=== PATIENT | male | born 1990 | race American Indian/Alaskan Native ===

== ENCOUNTER 2019-11-09 19:16 | Emergency (ER) | payer MEDICAID ==
[2019-11-09] MEDS ORDERED: Acetaminophen/oxyCODONE 325-5 MG Tab PO ONE ×2 (19:17→22:00)
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
[2019-11-09] MEDS ORDERED: Acetaminophen/HYDROcodone 108-2.5 MG/5 ML Cup PO ONE (21:37)
[2019-11-09] MEDS ORDERED: Ondansetron 4 MG Tab.DIS PO ONE (21:38)
[2019-11-09] MEDS ORDERED: Ketorolac 30 MG/ML SDV IM ONE (22:00)
[2019-11-09] MEDS ORDERED: Ketorolac 30 MG/ML SDV IVPUSH ONE (22:00)
[2019-11-09] MEDS ORDERED: Doxycycline 100 MG Cap PO ONE (22:08)
[2019-11-09] MEDS ORDERED: Acetaminophen/oxyCODONE 325-5 MG Tab ONE (22:14)
[2019-11-09 22:28] LABS: ANION GAP 17.7; CHLORIDE,CL 103 mmol/L (101-111); SODIUM,NA 142 mmol/L (135-145)
== END 2019-11-09 22:44 | disposition home or self-care (01) ==
LOC: DL.ED 19:16
DX: S02.609A Fracture of mandible, unspecified, initial encounter for closed fracture (principal); Y04.0XXA Assault by unarmed brawl or fight, initial encounter; F17.210 Nicotine dependence, cigarettes, uncomplicated; Z79.899 Other long term (current) drug therapy; Z88.0 Allergy status to penicillin
CPT/HCPCS: 36415; 70486; 80053; 80305; 80320; 85025; 96372; 99284; A9270; J1885; G0480

== ENCOUNTER 2022-10-29 18:30 | Inpatient (IN) | payer SELFPAY ==
[2022-10-29 19:34] LABS: CORONAVIRUS COVID-19 NAA NEGATIVE (NEGATIVE)
[2022-10-29] MEDS ORDERED: Sodium Chloride 0.9% 10 ML Syringe FLUSH PRN ×2 (20:23→22:55)
[2022-10-29] MEDS ORDERED: Ketorolac 30 MG/ML SDV IVPUSH ONE (20:36)
[2022-10-29] MEDS ORDERED: HYDROmorphone 0.5 MG/0.5 ML Syringe IVPUSH ONE (20:41)
[2022-10-29 21:04] LABS: ANION GAP 12.3 mEq/L (7-13); CHLORIDE,CL 93 mmol/L (98-107); SODIUM,NA 132 mmol/L (136-145)
[2022-10-29 21:05] LABS: ESTIMATED GFR 96 mL/min (>=60)
[2022-10-29] MEDS ORDERED: Iopamidol 755 Mg/ML 100 ML Bottle IVPUSH ONE (21:15)
[2022-10-29] MEDS ORDERED: Heparin Sodium 5,000 Units/ML Vial IVPUSH ONE (21:54)
[2022-10-29] MEDS ORDERED: Heparin Sodium/0.45% NaCl 25,000 UNITS/500 ML BAG IV SCH (22:00)
[2022-10-29] MEDS ORDERED: Meropenem 1 GM in Sodium Chloride 0.9% 100 ML IV ONE (22:20)
[2022-10-29] MEDS ORDERED: Acetaminophen 325 MG Tab PO PRN (22:53)
[2022-10-29] MEDS ORDERED: Albuterol/Ipratropium 3.0-0.5 MG/3 ML Neb Soln NEB PRN (22:55)
[2022-10-29] MEDS ORDERED: HYDROmorphone 0.5 MG/0.5 ML Syringe IVPUSH PRN (22:55)
[2022-10-29] MEDS ORDERED: Polyethylene Glycol 3350 Powder 17 GM Packet PO PRN (22:55)
[2022-10-29] MEDS ORDERED: Magnesium Hydroxide 400 MG/5 ML Susp 30 ML Cup PO PRN (22:55)
[2022-10-29] MEDS ORDERED: Ondansetron 4 MG/2 ML SDV IVPUSH PRN (22:55)
[2022-10-29] MEDS ORDERED: hydrOXYzine HCl 25 MG Tab PO PRN (22:59)
[2022-10-29] MEDS ORDERED: hydrALAZINE 20 MG/ML SDV IVPUSH PRN (23:35)
[2022-10-29] MEDS ORDERED: Metoprolol Tartrate 5 MG/5 ML SDV IVPUSH PRN (23:35)
[2022-10-30] MEDS: Acetaminophen/HYDROcodone 325-5 MG Tab PO PRN ×4 (04:50→20:18)
[2022-10-30] MEDS ORDERED: Heparin Sodium 5,000 Units/ML Vial IVPUSH ONE (05:15)
[2022-10-30] MEDS: Pantoprazole 40 MG Tab.CR PO SCH (05:27)
[2022-10-30] MEDS: Sodium Chloride 0.9% 10 ML Syringe FLUSH SCH ×2 (08:27→20:22)
[2022-10-30] MEDS ORDERED: oxyCODONE ER 10 MG TAB.ER PO SCH (09:00)
[2022-10-30] MEDS ORDERED: Nicotine 21 MG/24 Hr Patch TRDERM SCH (09:00)
[2022-10-30 10:45] LABS: AMPHETAMINES,URINE POSITIVE (NEGATIVE); BARBITURATES,URINE NEGATIVE (NEGATIVE); BENZODIAZEPINE,URINE NEGATIVE (NEGATIVE); MDMA (ECSTASY), URINE NEGATIVE (NEGATIVE); METHADONE,URINE NEGATIVE (NEGATIVE); METHAMPHETAMINES,URINE POSITIVE (NEGATIVE); OPIATES,URINE POSITIVE (NEGATIVE); PHENCYCLIDINE,URINE NEGATIVE (NEGATIVE); TCA,URINE NEGATIVE (NEGATIVE)
[2022-10-30 10:46] LABS: OXYCODONE,URINE NEGATIVE (NEGATIVE)
[2022-10-30] MEDS: Apixaban 5 MG Tab PO SCH ×2 (11:27→20:18)
[2022-10-31] MEDS: Acetaminophen/HYDROcodone 325-5 MG Tab PO PRN ×4 (00:54→20:07)
[2022-10-31] MEDS: Pantoprazole 40 MG Tab.CR PO SCH (05:15)
[2022-10-31 06:54] LABS: ANION GAP 11.9 mEq/L (7-13)
[2022-10-31] MEDS: Apixaban 5 MG Tab PO SCH ×2 (10:35→20:07)
[2022-10-31] MEDS: Sodium Chloride 0.9% 10 ML Syringe FLUSH SCH ×2 (10:35→20:07)
[2022-11-01] MEDS: Acetaminophen/HYDROcodone 325-5 MG Tab PO PRN (01:20)
[2022-11-01] MEDS: Pantoprazole 40 MG Tab.CR PO SCH (06:11)
[2022-11-01 06:37] LABS: ANION GAP 10.9 mEq/L (7-13)
[2022-11-01] MEDS ORDERED: traMADol 50 MG Tab PO PRN (08:10)
[2022-11-01] MEDS ORDERED: Polyethylene Glycol 3350 Powder 17 GM Packet PO SCH (09:00)
[2022-11-01] MEDS: Apixaban 5 MG Tab PO SCH (09:27)
[2022-11-01] MEDS: Sodium Chloride 0.9% 10 ML Syringe FLUSH SCH (09:29)
[2022-11-01] MEDS ORDERED: VANCOmycin 1.5 GM/300 ML 1.5 GM in Premix Bag 1 BAG IV SCH ×4 (11:00)
[2022-11-06] MEDS ORDERED: Apixaban 5 MG Tab PO SCH (09:00)
== END 2022-11-01 11:00 | DRG 176 ==
LOC: DL.ED 18:30 → UNDOADMIN 22:23 → DL.MS 22:23
PROVIDERS: ADMIT Internal Medicine; ATTEND Internal Medicine
DX: I26.99 Other pulmonary embolism without acute cor pulmonale (principal); J90 Pleural effusion, not elsewhere classified; R65.10 Systemic inflammatory response syndrome (SIRS) of non-infectious origin without acute organ dysfunction; E87.1 Hypo-osmolality and hyponatremia; R82.71 Bacteriuria; F19.90 Other psychoactive substance use, unspecified, uncomplicated; M54.50 Low back pain, unspecified; R09.89 Other specified symptoms and signs involving the circulatory and respiratory systems; F41.9 Anxiety disorder, unspecified; F17.210 Nicotine dependence, cigarettes, uncomplicated; B18.2 Chronic viral hepatitis C; Z20.822 Contact with and (suspected) exposure to COVID-19; E87.8 Other disorders of electrolyte and fluid balance, not elsewhere classified; R73.9 Hyperglycemia, unspecified; R00.0 Tachycardia, unspecified; E80.6 Other disorders of bilirubin metabolism; Z88.0 Allergy status to penicillin
CPT/HCPCS: 0240U; 36415; 71046; 71260; 80053; 80202; 80305-QW; 80307; 81001; 83605; 83735; 84145; 84484; 85025; 85379; 85651; 85730; 86140; 87040; 87086; 93005; 99285; A9270-GY; J1170; J1644; J1885; J3370; J3490; J7050; Q9967

== ENCOUNTER 2024-07-18 03:19 | Emergency (ER) | payer MEDICAID ==
[2024-07-18 03:47] LABS: BASOPHILS PERCENT AUTO 0.5 % (0.0-1.0); EOSINOPHILS PERCENT AUTO 4.5 % (1.0-3.0); HEMATOCRIT 44.7 % (40.0-54.0); LYMPHOCYTES PERCENT AUTO 37.1 % (20.5-50.1); MEAN CORPUSCULAR HEMOGLOBIN 30.6 pg (27.0-34.0); MEAN CORPUSCULAR HGB CONC 33.6 g/dL (33.0-35.0); MEAN CORPUSCULAR VOLUME 91.2 fL (80-100); MONOCYTES PERCENT AUTO 9.4 % (2-8); NEUTROPHILS PERCENT AUTO 48.5 % (42.2-75.2); PLATELET COUNT,PLT 258 10^3/uL (150-450); WHITE BLOOD CELL COUNT,WBC 6.4 10^3/uL (5.0-10.0)
[2024-07-18] MEDS: Sodium Chloride 0.9% 1,000 ML IV ONE ×2 (03:50→04:52)
[2024-07-18] MEDS: Famotidine 20 MG/2 ML SDV IVPUSH ONE (03:52)
[2024-07-18] MEDS: Ondansetron 4 MG/2 ML SDV IVPUSH ONE (03:54)
[2024-07-18 04:28] LABS: A/G RATIO 0.8; ALBUMIN 3.7 g/dL (3.4-5.0); ANION GAP 14.8 mEq/L (7-13); BILIRUBIN TOTAL 0.6 mg/dL (0.2-1.0); BUN/CREATININE RATIO 16.3 (No establ ref range); CALCIUM 8.9 mg/dL (8.5-10.1); CREATININE 0.92 mg/dL (0.70-1.30); EST CRCL DRUG DOSING (CG) 127.17 mL/min; MAGNESIUM 1.9 mg/dL (1.8-2.4); POTASSIUM,K 3.8 mmol/L (3.5-5.1); PROTEIN TOTAL,TP 8.3 g/dL (6.4-8.2)
[2024-07-18] MEDS: Ketorolac 30 MG/ML SDV IVPUSH ONE (04:55)
== END 2024-07-18 06:05 | disposition home or self-care (01) ==
LOC: DL.ED 03:19
DX: G43.909 Migraine, unspecified, not intractable, without status migrainosus (principal); F10.129 Alcohol abuse with intoxication, unspecified; F17.210 Nicotine dependence, cigarettes, uncomplicated; Z88.0 Allergy status to penicillin
CPT/HCPCS: 36415; 70450; 80053; 80307; 83735; 85025; 96361; 96374; 96375; 99283; 99284-25; J1885; J2405; J3490; J7030

== ENCOUNTER 2025-03-26 07:06 | Emergency (ER) | payer MEDICAID ==
[2025-03-26] MEDS ORDERED: cefTRIAXone 500 MG Vial IM ONE (07:24)
[2025-03-26] MEDS: Azithromycin 250 MG Tab PO ONE (07:42)
[2025-03-26] MEDS: cefTRIAXone 500 MG, Lidocaine 1% 1 ML IM ONE (07:43)
[2025-03-28 12:47] LABS: C.TRACHOMATIS BY TMA Negative (Negative); N.GONORRHOEAE BY TMA Negative (Negative); SOURCE URINE
== END 2025-03-26 07:54 | disposition home or self-care (01) ==
LOC: DL.ED 07:06
DX: Z20.2 Contact with and (suspected) exposure to infections with a predominantly sexual mode of transmission (principal); Z86.16 Personal history of COVID-19; Z88.0 Allergy status to penicillin
CPT/HCPCS: 87491; 87591; 96372; 99282; 99283; A9270; J0696; J2003